=== PATIENT | female | born 1965 | race African-American/Black ===

== ENCOUNTER 2023-07-12 08:18 | Outpatient (AMB) | payer OTHER, SELFPAY ==
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
[2023-07-12 08:24] VITALS: BP 116/84; BMI 32.7
== END 2023-07-12 09:46 | disposition home or self-care (01) ==
PROVIDERS: PCP Internal Medicine; Visit Provider Nurse Practitioner Family
DX: R51.9 Headache, unspecified (principal); G50.0 Trigeminal neuralgia; M54.2 Cervicalgia; R20.2 Paresthesia of skin; G47.9 Sleep disorder, unspecified; S82.891A Other fracture of right lower leg, initial encounter for closed fracture
CPT/HCPCS: 99204

== ENCOUNTER → 2023-07-12 08:18 | Outpatient (BNVA) | payer OTHER, SELFPAY | PROVIDERS: PCP Internal Medicine; Visit Provider Nurse Practitioner Family | DX: R51.9 Headache, unspecified (principal); G50.0 Trigeminal neuralgia; M54.2 Cervicalgia; R20.2 Paresthesia of skin; G47.9 Sleep disorder, unspecified | CPT/HCPCS: 99202 ==

== ENCOUNTER 2023-10-01 09:50 | Outpatient (REF) | payer OTHER, SELFPAY ==
--- NOTE | ~2023-10-01 | MR_ITS ---
EXAMINATION: MR BRAIN WITH AND WITHOUT CONTRAST CLINICAL INFORMATION: Headaches COMPARISON: None available. TECHNIQUE: MRI of the brain was obtained using routine sequences with additional dedicated sequences of the mid face/neck before and following administration of intravenous contrast. A total of 7.5 mL of Gadavist was administered intravenously. FINDINGS: There is no reduced diffusion to suggest acute infarct. Susceptibility weighted sequence is within normal limits. No mass effect, extra-axial collection, midline shift, or other herniation. No abnormal intracranial enhancement. The cisternal segments of the trigeminal nerves are within normal limits. No evidence of root entry zone vascular compression. No abnormal enhancement along Meckel's caves and the visualized extracranial aspects. The ventricles and sulci are normal in size and configuration. Few punctate T2/FLAIR hyperintense foci are nonspecific but may represent early chronic microvascular ischemic change. The visualized proximal intracranial flow voids are preserved. The paranasal sinuses are well-aerated. Partial opacification the bilateral mastoid air cells. No focal expansile or destructive osseous lesion. Cystic change in the posterior nasopharynx. MR/MR head/brain wo/w con IMPRESSION: No abnormal intracranial enhancement. The visualized aspects of the trigeminal nerves are within normal limits.
[2023-10-01] MEDS: gadobutroL 7.5 ML VIAL IVPUSH (10:54)
== END 2023-10-01 09:51 | disposition home or self-care (01) ==
LOC: HO.MRI 09:50
PROVIDERS: PCP Internal Medicine; Visit Provider Nurse Practitioner Family
DX: R51.9 Headache, unspecified (principal); G50.0 Trigeminal neuralgia
CPT/HCPCS: 70553; A9585

== ENCOUNTER 2024-03-06 14:06 | Outpatient (AMB) | payer OTHER, SELFPAY ==
--- NOTE | 2024-03-06 14:28 | A.OFFVIS_ITS ---
Vital Signs 03/06/24 14:31 Height 5 ft 1 in Weight 161 lb BMI 30.4 BP 122/78 Blood Pressure Location Rt brachial Position Sitting Intake Visit Reasons: Follow up-CONF Intake Note: patient presents for follow up. Allergies No Known Allergies Allergy (Verified 03/06/24 14:32) Medication List - Last Reconciled 03/06/24 by GODWIN Cordero baclofen 10 mg PO BID diclofenac sodium 1% topical BID estradiol 0.01%(0.1mg/gram) vaginal fluticasone propionate 50 mcg/actuation sprays intranasal loratadine 10 mg PO DAILY magnesium oxide 400 mg PO BEDTIME 30 days meclizine 12.5 mg PO TID mirabegron ER (Myrbetriq) 50 mg PO DAILY nicotine transdermal DAILY omeprazole 40 mg PO BID ondansetron mg PO DAILY riboflavin (vitamin B2) 400 mg PO DAILY 30 days sumatriptan succinate 50 - 100 mg orally at onset of headache, may repeat in 2 hrs PRN; max 2 tabs per day or 4 tabs/week (may take with Tylenol) 30 days topiramate 1/2 tab in qam and 1 tab at bedtime x's 2 weeks, then 1 tab bid orally 2 times a day; 30 days valacyclovir 1,000 mg PO DAILY HPI Comments Details: 58-yr-old female presents for f/u visit. Pt denies any significant interval medical changes. Pt reports she continues to have a near daily migraine a/w photophobia and phonophobia. She states she may have 1 day a month w/o a headache/migraine. She started Riboflavin 400mg qam- needs a refill. Started Magnesium 400mg qhs- helps. Started Topiramate 50mg 1 tab bid. Has not noticed any s/e's. 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 Baseline headache characteristics: Aura: can see flashing lights during the headache. Severe hammering pain starts in the mid occipital region and moves into the neck- neck feels swollen, and then has a sensation that moves from the crown of the head into the frontal region causing her eye, ears, upper teeth (was initially more so right) toothache type of pain a/w photophobia, photophobia, allodynia, nausea, vomiting, external/internal room spinning spinning dizziness, depth perception, occasionally sinus congestion. [facility] Medical History (Updated 07/19/23 @ 16:58 by GODWIN Cordero) HSV (herpes simplex virus) anogenital infection Tobacco use Bipolar disorder Degenerative disc disease, lumbar Degenerative disc disease, cervical Surgical History H/O oral surgery H/O knee surgery H/O tubal ligation H/O: hysterectomy Family History Mother HTN (hypertension) Heart disease COPD (chronic obstructive pulmonary disease) Hyperlipidemia Vertigo Bipolar 1 disorder Father HTN (hypertension) Heart disease Cancer Diabetes Liver disease Hyperlipidemia Stroke Schizophrenia Brother HTN (hypertension) Hyperlipidemia Vertigo Son Sarcoma Liver disease Sister Cancer Heart disease Diabetes COPD (chronic obstructive pulmonary disease) Hyperlipidemia Stroke Vertigo Social History Alcohol intake: never Patient Tobacco Use Status: Current someday Tobacco user Substance Use Type: Marijuana Physical Exam Vital Signs: Last Vital Signs BP 122/78 03/06/24 14:31 BMI result Body Mass Index 30.4 Const General: cooperative and no acute distress Orientation/consciousness: patient oriented x3 Resp Effort & Inspection: normal respiratory effort and able to speak in complete sentences Neuro General: patient oriented x3 Cranial nerves: Yes CN's II-XII intact bilaterally Cognition (Neuro): normal cognition Psych Appearance: grossly normal Mental Status: mental status grossly normal Speech and movement: Normal speech and movement present Affect: normal affect Attitude: cooperative Assessment & Plan Assessment & Plan (1) Worsening headaches: Comment: ? migraine vs secondary headache, cervicogenic BURTON Code(s): R51.9 - Headache, unspecified Category: Medical (2) Trigeminal neuralgia: Code(s): G50.0 - Trigeminal neuralgia Category: Medical Plan Reviewed: Brain MRI w/wo- nonspecific Few punctate T2/FLAIR hyperintense foci c/w early chronic microvascular ischemic change. Labs- WNL C-spine XR w/ flex/ext- severe multilevel degenerative changes w/o instability. Pt advised to undergo: MR angio brain w/o to assess for secondary intracranial etiologies of stabbing headaches and trigeminal neuralgia s/s. PT eval & tx- for cervicalgia, order slip given to pt. Future considerations: c-spine MRI, RUE/BUE EMG/NCS.. ? For overall headache management: Discussed importance of good self-care, including but not limited to maintaining a healthy diet, adequate fluid intake, adequate sleep, and engaging in regular physical activity. For headache triggers: Track headaches. Light sensitivity tips: Patient may try blue light filtering glasses, green glasses, green light therapy.. ? For acute headache treatment: Discussed importance of taking acute medications at the first sign of headache, however stressed importance of avoiding acute medication overuse. Continue Sumatriptan 100mg tab. Advised she can try 1/4-1/2 tab during the day to better assess tolerance and effect. May repeat Sumatripatn in 2 hours. Max of 2 tabs (200mg) per 24 hours. May adjunct with OTC Tylenol 650mg q 4 hours, Ibuprofen 600mg q 6 hours, or Naproxen 440mg q 12 hrs prn. Previous acute migraine medication trials: None Acute migraine medication contraindications: None ? For headache prevention medication: Riboflavin 400mg qam Magnesium 400mg qhs Increase Topiramate from 50mg bid to 50mg qam and 100mg qhs x's 2 weeks, then 100mg bid. Previous migraine prevention medication trials: No other Migraine prevention medication contraindications: antidepressants d/t bipolar dx w/o a concomitant mood stabilizer. ? Pt advised to call us if no improvement in 1-2 months. Pt to follow-up in 4-6 months or sooner prn. Orders: Orders MR angio head wo con 03/06/24 G50.0 - Trigeminal neuralgia, R51.9 - Headache, unspecified Medications: New topiramate 1/2 tab in qam and 1 tab at bedtime x's 2 weeks, then 1 tab bid orally 2 times a day; 30 days 60 tabs 6RF Refilled riboflavin (vitamin B2) 400 mg PO DAILY 30 days 30 tabs 6RF sumatriptan succinate (0.5 - 1 x 100 mg) 50 - 100 mg orally at onset of headache, may repeat in 2 hrs PRN; max 2 tabs per day or 4 tabs/week (may take with Tylenol) 30 days 12 tabs 6RF migraine headache Discontinued topiramate 2 tabs bid orally 2 times a day; Discontinued Reason: Doctor's Order 100 mg (2 x 50 mg) PO BID 30 days 120 tabs 3RF Coding Level of Care Code Est Pt Level 4 (87364) Diagnoses Worsening headaches R51.9 Trigeminal neuralgia G50.0
[2024-03-06 14:31] VITALS: BP 122/78; BMI 30.4
== END 2024-03-06 15:06 | disposition home or self-care (01) ==
PROVIDERS: PCP Internal Medicine; Visit Provider Nurse Practitioner Family
DX: R51.9 Headache, unspecified (principal); G50.0 Trigeminal neuralgia
CPT/HCPCS: 99214

== ENCOUNTER → 2024-03-06 14:06 | Outpatient (BNVA) | payer OTHER, SELFPAY | PROVIDERS: PCP Internal Medicine; Visit Provider Nurse Practitioner Family | DX: R51.9 Headache, unspecified (principal); G50.0 Trigeminal neuralgia | CPT/HCPCS: 99212 ==

== ENCOUNTER 2024-04-25 10:59 | Outpatient (REF) | payer OTHER, SELFPAY ==
--- NOTE | ~2024-04-25 | MR_ITS ---
EXAMINATION: MR ANGIOGRAPHY BRAIN WITHOUT CONTRAST CLINICAL INFORMATION: Trigeminal neuralgia. COMPARISON: Brain MRI from 10/01/2023. TECHNIQUE: 3D [id number] MR angiography was performed through the brain without the use of intravenous gadolinium. 3D postprocessing including acquisition of multiplanar MIP reformats are obtained at the technologist workstation and utilized for image interpretation. Stenoses are assessed in accordance with NASCET criteria unless otherwise indicated. FINDINGS: Normal flow-related signal within the anterior circulation without evidence of focal stenosis or occlusion of the intradural internal carotid, middle cerebral, or anterior cerebral arteries. The A1 segment of the right anterior cerebral artery is atretic in nature (normal variant). Normal flow-related signal within the posterior circulation without evidence of focal stenosis or occlusion of the intradural vertebral, basilar, superior cerebellar, or posterior cerebral arteries. No demonstrated intradural aneurysms. No demonstrated abnormal arterial structures in the regions of the trigeminal nerves. No additional significant abnormalities on limited evaluation of the intracranial structures. MR/MR angio head wo con IMPRESSION: Normal MRA of the head. No demonstrated abnormalities to explain the patient's symptoms. Electronically signed by: Mina Oliver DO 06/24/2024 03:33 AM EST
== END 2024-04-25 11:00 | disposition home or self-care (01) ==
LOC: HO.MRI 10:59
PROVIDERS: PCP Internal Medicine; Visit Provider Nurse Practitioner Family
DX: G50.0 Trigeminal neuralgia (principal); R51.9 Headache, unspecified
CPT/HCPCS: 70544

== ENCOUNTER 2024-11-19 08:50 | Outpatient (REF) | payer OTHER, SELFPAY ==
--- NOTE | ~2024-11-19 | CT_ITS ---
CLINICAL HISTORY: TRIGEMINAL NEURALGIA,WORSENING,HEADACHES CT Head without contrast. CT angiography head and neck with contrast. 3D Postprocessing. Comparison: None Findings: HEAD CT: Scattered subcortical and periventricular hypoattenuation, likely in keeping with chronic small vessel ischemic disease. Parenchymal volume loss with compensatory prominence of the ventricles and CSF spaces. No acute territorial infarction, intracranial hemorrhage, midline shift or hydrocephalus. There is no sinus or mastoid fluid. The orbits are unremarkable. No skull fracture. Periapical lucencies, in keeping with periodontal disease. HEAD AND NECK CTA: Aortic arch and cervical great vessels are patent. Minimal focus of plaque along the left proximal cervical segment ICA. No significant stenoses cervical vasculature is patent. Infundibulum of the origin of the left superior cerebellar artery. Aplastic right A1 segment SARIAH. Intracranial arteries are patent. No aneurysm, dissection, or occlusion. No abnormal intracranial enhancement. The visualized thyroid gland is unremarkable. No cervical mass or fluid collection. Emphysema. Straightening of the cervical lordosis. Multilevel spondylosis with osteophytosis, uncovertebral hypertrophy, facet arthropathy and degenerative disc disease. Scattered prominent lymph nodes throughout the neck, may be reactive however are nonspecific. IMPRESSION: 1. No acute intracranial hemorrhage or territorial infarction. 2. Patent head and neck CTA. If clinical concern persists consider follow-up MRI. This document has been electronically signed by: Marek Alvarado MD on 11/20/2024 04:27:53
--- OUTSIDE RECORDS SUMMARY | 2024-11-19 09:10 | XMS_ITS | Clinical Summary ---
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 Active topiramate (TOPAMAX) 25 mg tablet Take 1 Capsule by mouth daily. Active meclizine (ANTIVERT) 12.5 mg tablet Take 1 Tablet by mouth 3 times daily as needed (dizziness). Active loratadine (CLARITIN) 10 mg tablet Take 1 tablet (10 mg total) by mouth 1 (one) time each day. Active fluticasone propionate (FLONASE) 50 mcg/actuation nasal spray 2 Sprays by Nasal route daily. Active nicotine (NICODERM CQ) 7 mg/[address] 1 PATCH ONTO THE SKIN EVERY 24 HOURS Active baclofen (LIORESAL) 10 mg tablet TAKE 1 TABLET BY MOUTH TWICE A DAY NEEDED FOR MUSCLE SPASM Active nicotine polacrilex (NICORETTE) 2 mg gum Take 1 Each by mouth every 3 hours as needed (smoking cessation). Active camphor-methyl salicyl-menthoL (Salonpas) 3.1-10-6 % adhesive patch,medicated Apply 1 Patch topically daily. 07/26/2 024 Active leg brace misc Elastic Bandages & Supports (MEE Ankle Brace Large) Misc 1 Each by Does not apply route daily 023 Active arm brace (WRIST BRACE LARGE MISC) Elastic Bandages & Supports (Wrist Brace/Right Large) Misc 1 Each by Does not apply route daily. 023 Active INCONTINENCE PAD, LINER, DISP MISC Incontinence Supply Disposable (RA Adult Wipes) Misc 2 Each by Does not apply route 5 times daily. 2 box Refill 11 Dx: Overactive bladder 023 Active omeprazole (PriLOSEC) [address] capsule TAKE 1 CAPSULE BY MOUTH EVERY DAY 90 capsule 1 025 Active traZODone (DESYREL) 150 mg tablet TAKE 1 TABLET BY MOUTH EVERYDAY AT BEDTIME 90 tablet 1 025 Active SUMAtriptan (IMITREX) 100 mg tablet PLEASE SEE ATTACHED FOR DETAILED DIRECTIONS Active magnesium oxide (MAG-OX) 400 mg (241.3 elemental magnesium) tablet TAKE 1 TABLET BY MOUTH AT BEDTIME FOR 30 DAYS MAY HOLD FOR LOOSE STOOLS 024 Active ondansetron ODT (ZOFRAN-ODT) 4 mg disintegrating tablet Dissolve 1 tablet (4 mg total) on top of the tongue every 12 (twelve) hours if needed for nausea or vomiting. 30 tablet 2 025 Active diclofenac (VOLTAREN) 1 % topical gel APPLY 2 G TOPICALLY TWICE A DAY 100 g 1 025 Active estradioL (ESTRACE) 0.01 % (0.1 mg/gram) vaginal cream INSERT 2 GRAMS INTO THE VAGINA ONCE DAILY. 42.5 g 2 025 Active estradioL (ESTRACE) 0.01 % (0.1 mg/gram) vaginal cream Insert 2 g into the vagina 1 (one) time each day. 42.5 g 1 025 2024 Discontinued Active Problems Problem Noted Date Diagnosed Date GERD (gastroesophageal reflux disease) OAB (overactive bladder) 04/11/2023 Tobacco use disorder 04/11/2023 Vertigo 04/11/2023 Degenerative disc disease, cervical 10/03/2022 Degenerative disc disease, lumbar 10/03/2022 Migraine 10/03/2022 Other insomnia 10/03/2022 Bipolar disorder ([facility] V24, [facility] V28) 07/15 Overview (04/08/2024): Dr Rodriguez-[facility] psych on [facility].has councellor too Morbid obesity ([facility] V24, [facility] V28) 2006 Immunizations Name Administration Dates Next Due Td Tetanus diptheria (Tdvax) 7yo and older 10/22 Tdap Tetanus diptheria acell ular pertussis (Boostrix; Adacel) 7yo and older 04/11/2023 Surgical History Surgery Date Site/Laterality Comments OTHER SURGICAL HISTORY PROCEDURE: UT TOTAL ABDOMINAL HYSTERECT W/WO RMVL TUBE OVARY Medical History Medical History Date Comments Bipolar disorder ([facility] V2 4, [facility] V28) 07/25/2006 DX:Bipolar disorder ([facility]); C OMMENT: Dr Rodriguez-[facility] psych on [facility].has councellor too Family History Medical History Relation Name Comments Colon cancer Father 50 Diabetes Father Hypertension Father COPD Mother Coronary artery disease Mother Dementia Mother Hypertension Mother Diabetes Sister Hypertension Sister Relation Name Status Comments Brother Alive 1,helathy Father Mother Alive Sister Alive 3, Social History Tobacco Use Types Packs/Day Years Used Date Smoking Tobacco: Former Cigarettes Smokeless Tobacco: Never Tobacco Cessation:Counseling Given: Not Answered Alcohol Use Standard Drinks/Week Comments Yes 0 (1 standard drink = 0.6 oz pur e alcohol) Comments No Sex and Gender Information Value Date Recorded Sex Assigned at Not on file Legal Sex Female 5:29 AM EST Gender Identity Not on file Sexual Orientation Not on file Obstetrics History Last Filed Vital Signs Vital Sign Reading Time Taken Comments Blood Pressure 135/91 08/12/2024 8:34 AM EST Pulse 79 08/12/2024 8:34 AM EST Temperature - - Respiratory Rate - - Oxygen Saturation - - Inhaled Oxygen Concentration - - Weight 75.4 kg (166 lb 3.2 oz) 08/12/2024 8:34 A M EST Height 152.4 cm (5') 08/12/2024 8:34 AM EST Body Mass Index 32.46 08/12/2024 8:34 AM EST Plan of Treatment Health Maintenance Due Date Last Done Comments Pneumococcal Vaccine: 50+ Years (1 of 1 - PCV) 2014 HIV Screening 06/24/2022 Medicare Annual Wellness Visit 06/24/2022 Depression Screening 08/12/2025 08/12/2024 Social Influencers of Health Screening 08/12/2025 08/12/2024 Cholesterol Screening (Lipid Panel) 08/12/2029 08/12/2024, 02/07/2024, 02/07/2024 DTaP,Tdap,and Td Vaccines (3 - Td or Tdap) 04/11/2033 04/11/2023, 10/22/2002 Colorectal Cancer Screening: Colonoscopy 08/20/2033 08/20/2023 RSV Immunization Adult Patients (1 - 1-dose 75+ series) 2039 COVID-19 Vaccine Discontinued 11/06/2021 Hepatitis C Screening Completed 09/14/2022 Breast Cancer Screening Discontinued Cervical Cancer Screening: Pap Smear Discontinued HIB Vaccines Aged Out No longer eligi ble based on patient's age to complete this topic HPV Vaccines Aged Out No longer eligi ble based on patient's age to complete this topic Hepatitis A Vaccines Aged Out No long er eligible based on patient's age to complete this topic Hepatitis B Vaccines Aged Out No long er eligible based on patient's age to complete this topic IPV Vaccines Aged Out No longer eligi ble based on patient's age to complete this topic Influenza Vaccine Discontinued MMR Vaccines Aged Out No longer eligi ble based on patient's age to complete this topic Meningococcal ACWY Vaccine Aged Out N o longer eligible based on patient's age to complete this topic Meningococcal B Vaccine Aged Out No l onger eligible based on patient's age to complete this topic Pneumococcal Vaccine: Pediatrics (0 to 5 Years) and At-Risk Patients (6 to 64 Years) Aged Out No longer eligible based on patient's age to complete this topic RSV Immunization Patients Under 20 months Aged Out No longer eligible based on patient's age to complete this topic Varicella Vaccines Aged Out No longer eligible based on patient's age to complete this topic Zoster Vaccines Discontinued Procedures Procedure Name Priority Date/Time Associated Diagnosis Comments LIPID PANEL WITH REFLEX TO DIRECT LDL Routine 08/12/2024 9:44 AM EST Hypercholesterolemi a COLONOSCOPY Routine 08/20/2023 HEPATITIS C SCREENING Routine 09/14/2022 from Last 3 Months or Most Recently Relevant to Health Maintenance Results * (ABNORMAL) Lipid panel with reflex to direct LDL (08/12/2024 9:44 AM EST) Cholesterol 207(H) 0 - 200 mg/dL LAB CHEMISTRY METHOD 08/12/2024 12:[address] [facility] Triglycerides 56 0 - 150 mg/dL LAB CHEMISTRY METHOD 08/12/2024 12:[address] [facility] HDL 90 >=40 mg/dL LAB CHEMISTRY METHOD 08/12/2024 12:[address] [facility] LDL Calculated 106(H) 0 - 100 mg/dL LAB CHEMISTRY METHOD 08/12/2024 12:[address] [facility] VLDL Cholesterol Kel 11.2 mg/dL LAB CHEMISTRY METHOD 08/12/2024 12:[address] [facility] Non HDL Chol. (LDL+VLDL) 117 <145 mg/dL LAB CHEMISTRY METHOD 08/12/2024 12:[address] [facility] Chol/HDL Ratio 2.3 0.0 - 4.4 LAB CHEMISTRY METHOD 08/12/2024 12:[address] [facility] Blood Venous blood specimen / Unknown Venipuncture / Unknown 08/12/2024 9:44 AM EST 08/12/2024 9:44 AM EST Gumaro Cheng MD LAB BLOOD ORDERABLES Final Resu lt [facility] [address] [place] [address], [place] [phone] * Colonoscopy (08/20/2023) Pathologist [facility] Colonoscopy completed Anatomical Region Laterality Modality Other Historical Provider HEALTH MAINTENANCE Final Result * Hepatitis C Screening (09/14/2022) Hepatitis C Screening negative us Historical Provider HEALTH MAINTENANCE Final Result from Last 3 Months or Most Recently Relevant to Health Maintenance Insurance [employer] Member Subscriber Plan / Payer (Ef fective 2024-Present) Name:João Gutierrez Relation to Subscriber:Self Name:João Gutierrez Payer ID:[id number] Group ID:[id number] Type:Not on file Address: [place] [address] [address] [place] [id number] 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
[2024-11-19] MEDS: iohexoL 350 MG/ML 100 ML INFUS..BTL IV (09:56)
[2024-11-20 08:21] LABS: Creatinine POC 0.8 mg/dL (0.5-1.4); GFR POC > 60
== END 2024-11-19 08:51 | disposition home or self-care (01) ==
LOC: HO.CT 08:50
PROVIDERS: PCP Internal Medicine; Visit Provider Nurse Practitioner Family
DX: G50.0 Trigeminal neuralgia (principal); R51.9 Headache, unspecified
CPT/HCPCS: 70496; 70498; 82565; Q9967

== ENCOUNTER → 2024-11-19 08:53 | Outpatient (BNV) | payer OTHER, SELFPAY | PROVIDERS: PCP Internal Medicine; Visit Provider Radiology Diagnostic Radiology | DX: R51.9 Headache, unspecified (principal) | CPT/HCPCS: 70496; 70498 ==

== ENCOUNTER 2025-02-25 11:31 | Outpatient (AMB) | payer OTHER, SELFPAY ==
[2025-02-25 11:21] VITALS: BP 120/80; BMI 27.0
--- NOTE | 2025-02-25 11:21 | A.OFFVIS_ITS ---
Vital Signs 02/25/25 11:21 Height 5 ft 1 in Weight 143 lb BMI 27.0 BP 120/80 Blood Pressure Location Rt brachial Position Sitting Comment Unable to obtain O2 and pulse due to nails Intake Visit Reasons: follow up Intake Note: patient presents for follow up. 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 by: Self / Same As Patient Allergies No Known Allergies Allergy (Verified 02/25/25 11:40) Medication List - Last Reconciled 02/25/25 by GODWIN Cordero amoxicillin 875 mg PO BID baclofen 10 mg PO BID fluticasone propionate 50 mcg/actuation sprays intranasal loratadine 10 mg PO DAILY magnesium oxide 400 mg PO BEDTIME 30 days meclizine 12.5 mg PO TID mirabegron ER (Myrbetriq) 50 mg PO DAILY nicotine transdermal DAILY omeprazole 40 mg PO BID ondansetron mg PO DAILY riboflavin (vitamin B2) 400 mg PO DAILY 30 days sumatriptan succinate 50 - 100 mg orally at onset of headache, may repeat in 2 hrs PRN; max 2 tabs per day or 4 tabs/week (may take with Tylenol) 30 days topiramate 1/2 tab in qam and 1 tab at bedtime x's 2 weeks, then 1 tab bid orally 2 times a day; 30 days valacyclovir 1,000 mg PO DAILY HPI Comments Details: 59-yr-old female presents for f/u visit, for migraine, but also would like to discuss a new dizziness. Pt reports a chronic history of room spinning vertigo. However, she has a new vertigo sensation, which started 2 months ago, where she feels like her brain is moving, even when she is not moving- like a not right in space sensation. This is causing her to bump into things. Prior to the onset of this, she denies any infection, cold s/s. However, 2 weeks ago, she had URI s/s- nasal congestion- which she tried to self manage w/ supplements, but then moved into her chest, and then saw her PCP who dx'd her w/ PNA and started her on Amoxicillin-Clauv. Today, she notes that this dizziness has improved since starting the ABT 5 days ago. Does use a loratadine daily- for seasonal allergies- as [place] Pt reports she continues to have a near daily less severe migraine a/w photophobia and phonophobia. Now not having 4 attacks in a day, may only have 1 attack per day. She uses Riboflavin 400mg qam- needs a refill. She uses Mag bid, and uses a small marijuana edible at night- which helps. Uses Topiramate 50mg 1 tab bid- but not every day. 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 She is using alternate interventions- using shades, black out curtains. Has a yellow, but never tried using green light tx. Baseline headache characteristics: Aura: can see flashing lights during the headache. Severe hammering pain starts in the mid occipital region and moves into the neck- neck feels swollen, and then has a sensation that moves from the crown of the head into the frontal region causing her eye, ears, upper teeth (was initially more so right) toothache type of pain a/w photophobia, photophobia, allodynia, nausea, vomiting, external/internal room spinning spinning dizziness, depth perception, occasionally sinus congestion. [facility] Medical History (Updated 02/25/25 @ 12:31 by GODWIN Cordero) HSV (herpes simplex virus) anogenital infection Tobacco use Bipolar disorder Degenerative disc disease, lumbar Degenerative disc disease, cervical Surgical History (Updated 02/25/25 @ 11:41 by Leah Milton CMA) History of recent maxillofacial surgery H/O oral surgery H/O knee surgery H/O tubal ligation H/O: hysterectomy Family History Mother HTN (hypertension) Heart disease COPD (chronic obstructive pulmonary disease) Hyperlipidemia Vertigo Bipolar 1 disorder Father HTN (hypertension) Heart disease Cancer Diabetes Liver disease Hyperlipidemia Stroke Schizophrenia Brother HTN (hypertension) Hyperlipidemia Vertigo Son Sarcoma Liver disease Sister Cancer Heart disease Diabetes COPD (chronic obstructive pulmonary disease) Hyperlipidemia Stroke Vertigo Social History Alcohol intake: never Patient Tobacco Use Status: Current someday Tobacco user Substance Use Type: Marijuana Physical Exam Vital Signs: Last Vital Signs BP 120/80 02/25/25 11:21 BMI result Body Mass Index 27.0 Const General: cooperative and no acute distress Orientation/consciousness: patient oriented x3 Resp Effort & Inspection: normal respiratory effort and able to speak in complete sentences Neuro General: patient oriented x3 Cranial nerves: Yes CN's II-XII intact bilaterally Cognition (Neuro): normal cognition Psych Appearance: grossly normal Mental Status: mental status grossly normal Speech and movement: Normal speech and movement present Affect: normal affect Attitude: cooperative Assessment & Plan Assessment & Plan (1) Trigeminal neuralgia: Code(s): G50.0 - Trigeminal neuralgia Category: Medical (2) Migraine without aura and without status migrainosus, not intractable: Code(s): G43.009 - Migraine without aura, not intractable, without status migrainosus Category: Medical Plan Previous workup: Brain MRI w/wo- nonspecific Few punctate T2/FLAIR hyperintense foci c/w early chronic microvascular ischemic change. C-spine XR w/ flex/ext- severe multilevel degenerative changes w/o instability. Interval workup: 11/21/2023, head neck CTA: Scattered subcortical and periventricular hypoattenuation, likely in keeping with chronic small vessel ischemic disease. Parenchymal volume loss with compensatory prominence of the ventricles and CSF spaces. No acute intracranial hemorrhage or territorial infarction. Patent head and neck CTA. 04/24/2024, MR angio brain w/o: Normal MRA of the head. For new onset not right in space dizziness: Improved since starting Augmentin for pneumonia treatment Hold loratadine Trial Zyrtec 10 mg q.h.s. Advised to try OTC pressurized saline spray, saline rinse into both nostrils daily before bedtime If ineffective, consider trial of Xyzal or cyproheptadine.? Future considerations: Vestibular eval and treat For overall headache management: Discussed importance of good self-care, including but not limited to maintaining a healthy diet, adequate fluid intake, adequate sleep, and engaging in regular physical activity. For headache triggers: Track headaches. Light sensitivity tips: Patient patient advised to try a green light bulb, such as can be bought at the local [employer] store, to minimize photophobia ? For acute headache treatment: It is important to take acute medications at the first sign of headache, however stressed importance of avoiding acute medication overuse. Continue Sumatriptan 100mg tab. Advised she can try 1/4-1/2 tab during the day to better assess tolerance and effect. May repeat Sumatripatn in 2 hours. Max of 2 tabs (200mg) per 24 hours. May adjunct with OTC Tylenol 650mg q 4 hours, Ibuprofen 600mg q 6 hours, or Naproxen 440mg q 12 hrs prn. Previous acute migraine medication trials: None Acute migraine medication contraindications: None ? For headache prevention medication: Continue Riboflavin 400mg qam We will adjust Magnesium dose from 400mg qhs to patient's current dose * Continue magnesium 400 mg twice a day Continue Topiramate 100 mg daily at bedtime Previous migraine prevention medication trials: No other Migraine prevention medication contraindications: antidepressants d/t bipolar dx w/o a concomitant mood stabilizer. ? Pt advised to call us if no improvement in 1-2 months. Pt to follow-up in 4-6 months or sooner prn. Medications: New cetirizine (Zyrtec) 10 mg PO BEDTIME 30 tabs 6RF 30 days Changed From topiramate 1/2 tab in qam and 1 tab at bedtime x's 2 weeks, then 1 tab bid orally 2 times a day; 30 days 60 tabs 6RF To topiramate 100 mg PO BEDTIME 30 tabs 6RF 30 days From magnesium oxide may hold for loose stools 400 mg PO BEDTIME 30 days 30 tabs 6RF To magnesium oxide may hold for loose stools 400 mg PO BID 180 tabs 3RF 90 days From riboflavin (vitamin B2) 400 mg PO DAILY 30 days 30 tabs 6RF To riboflavin (vitamin B2) 400 mg PO DAILY 90 tabs 3RF 90 days Refilled sumatriptan succinate 50 - 100 mg orally at onset of headache, may repeat in 2 hrs PRN; max 2 tabs per day or 4 tabs/week (may take with Tylenol) 12 tabs 6RF migraine headache 30 days Coding Level of Care Code Est Pt Level 4 (69567) Diagnoses Trigeminal neuralgia G50.0 Migraine without aura and without status migrainosus, not intractable G43.009
--- OUTSIDE RECORDS SUMMARY | 2025-02-25 12:36 | XMS_ITS | Clinical Summary ---
Author Organization [place] [address] [facility] Address [address] [place] [phone] Phone Care Team Providers [employer] Foreperson Name Role Phone Gumaro Cheng MD Primary Care Provider [phone] Allergies Active Allergy Reactions Criticality Noted Date Comments Pollen Extracts 04/11/2023 SEASONAL ALLERGIES Medications valACYclovir (VALTREX) 1 gram tablet Take 1 Tablet by mouth daily as needed (herpes). 024 Active topiramate (TOPAMAX) 25 mg tablet Take 1 Capsule by mouth daily. Active loratadine (CLARITIN) 10 mg tablet Take 1 tablet (10 mg total) by mouth 1 (one) time each day. 024 Active baclofen (LIORESAL) 10 mg tablet TAKE 1 TABLET BY MOUTH TWICE A DAY NEEDED FOR MUSCLE SPASM 024 Active camphor-methyl salicyl-menthoL (Salonpas) 3.1-10-6 % adhesive patch,medicated Apply 1 Patch topically daily. 024 Active leg brace misc Elastic Bandages [...] Refill 11 Dx: Overactive bladder 023 Active SUMAtriptan (IMITREX) 100 mg tablet PLEASE SEE ATTACHED FOR DETAILED DIRECTIONS Active magnesium oxide (MAG-OX) 400 mg (241.3 elemental magnesium) tablet TAKE 1 TABLET BY MOUTH AT BEDTIME FOR 30 DAYS MAY HOLD FOR LOOSE STOOLS 024 Active diclofenac (VOLTAREN) 1 % topical gel APPLY 2 G TOPICALLY TWICE A DAY 100 g 1 025 Active ondansetron ODT (ZOFRAN-ODT) 4 mg disintegrating tablet DISSOLVE 1 TABLET ON TONGUE EVERY 12 HOURS NEEDED FOR NAUSEA OR VOMITING. 30 tablet 3 025 Active estradioL (ESTRACE) 0.01 % (0.1 mg/gram) vaginal cream INSERT 2 GRAMS INTO THE VAGINA ONCE DAILY. 42.5 g 2 025 Active omeprazole (PriLOSEC) [address] capsule TAKE 1 CAPSULE BY MOUTH EVERY DAY 90 capsule 1 025 Active traZODone (DESYREL) 150 mg tablet TAKE 1 TABLET BY MOUTH EVERYDAY AT BEDTIME 90 tablet 1 025 Active nicotine (NICODERM CQ) 7 mg/[address] 1 patch on the skin 1 (one) time each day at the same time. 30 each 025 2024 Active meclizine (ANTIVERT) 12.5 mg tablet TAKE 1 TABLET BY MOUTH THREE TIMES A DAY NEEDED FOR DIZZINESS 90 tablet 1 025 Active fluticasone propionate (FLONASE) 50 mcg/actuation nasal spray SPRAY 2 SPRAYS INTO EACH NOSTRIL EVERY DAY 48 mL 1 025 Active meclizine (ANTIVERT) 12.5 mg tablet Take 1 Tablet by mouth 3 times daily as needed (dizziness). 024 2024 Discontinued fluticasone propionate (FLONASE) 50 mcg/actuation nasal spray 2 Sprays by Nasal route daily. 024 2024 Discontinued nicotine (NICODERM CQ) 7 mg/[address] 1 PATCH ONTO THE SKIN EVERY 24 HOURS 2024 Discontinued nicotine polacrilex (NICORETTE) 2 mg gum Take 1 Each by mouth every 3 hours as needed (smoking cessation). 024 2024 Discontinued amoxicillin-clavu lanate (AUGMENTIN) 875-125 mg per tablet Take 1 tablet by mouth 2 (two) times a day for 7 days. 14 each 025 2024 Active Problems Problem Noted Date Diagnosed Date GERD (gastroesophageal reflux disease) OAB (overactive bladder) 04/11/2023 Tobacco use disorder 04/11/2023 Vertigo 04/11/2023 Degenerative disc disease, cervical 10/03/2022 Degenerative disc disease, lumbar 10/03/2022 Migraine 10/03/2022 Other insomnia 10/03/2022 Bipolar disorder [place] [place], [facility] [place]28) 07/15 Overview (04/08/2024): [facility] on [facility].has councellor too Morbid obesity ([facility] [place], [facility] V28) 2006 Encounters Date Type Department Care Team Description 02/15/2025 3:08 PM EDT - 02/15/2025 11:59 PM EDT Hospital Encounter Xray - [facility] [address] [place] [address] Acute cough Discharge Disposition: Home or Self Care 02/15/2025 3:00 PM EDT [facility] [phone] Mateusz Peguero PA Acute cough (Primary Dx); Chronic obstructive pulmonary disease, unspecified COPD type ([facility] [place]24, [facility] V28) 02/15/2025 [facility] [phone] Gumaro Cheng MD Sinusitis; Chest Pain; Nasal Congestion; Cough from Last 3 Months Immunizations Name Administration Dates Next Due Td Tetanus diptheria (Tdvax) 7yo and older 10/22 Tdap Tetanus diptheria acell ular pertussis (Boostrix; Adacel) 7yo and older 04/11/2023 Surgical History Surgery Date Site/Laterality Comments OTHER SURGICAL HISTORY PROCEDURE: [facility] TOTAL ABDOMINAL HYSTERECT W/WO RMVL TUBE OVARY Medical History Medical History Date Comments Bipolar disorder (CMS/HCC V2 4, CMS/HCC V28) 07/25/2006 DX:Bipolar disorder ([facility]); C OMMENT: Dr [facility] psych on [facility].has councellor too Family History Medical History Relation [...] Sign Reading Time Taken Comments Blood Pressure 108/80 02/15/2025 2:54 PM EDT Pulse 97 02/15/2025 2:54 PM EDT Temperature 36.2 C (97.2 F) 02/15/2025 2:54 PM EDT Respiratory Rate 16 02/15/2025 2:54 PM EDT Oxygen Saturation 94% 02/15/2025 2:54 PM EDT Inhaled Oxygen Concentration - - Weight 68.8 kg (151 lb 9.6 oz) 02/15/2025 2:54 P M EDT Height 152.4 cm (5') 08/12/2024 8:34 AM EST Body Mass Index 29.61 08/12/2024 8:34 AM EST Plan of Treatment Health Maintenance Due Date Last Done Comments Pneumococcal Vaccine: 50+ Years (1 of 2 - PCV) 1983 HIV Screening 06/24/2022 Medicare Annual Wellness Visit 06/24/2022 RSV Immunization Adult Patients (1 - Risk 60-74 years 1-dose series) 2024 Depression Screening 07/15/2024 Social Influencers of Health Screening 08/12/2025 08/12/2024 Cholesterol Screening (Lipid Panel) 08/12/2029 08/12/2024, 02/07/2024, 02/07/2024 DTaP,Tdap,and Td Vaccines (3 - Td or Tdap) 04/11/2033 04/11/2023, 10/22/2002 Colorectal Cancer Screening: Colonoscopy 08/20/2033 08/20/2023 COVID-19 Vaccine Discontinued 11/06/2021 Hepatitis C Screening [...] Procedure Name Priority Date/Time Associated Diagnosis Comments XR CHEST 2 VIEWS Routine 02/15/2025 3:15 PM EDT Acute cough LIPID PANEL WITH REFLEX TO DIRECT LDL Routine 08/12/2024 9:44 AM EST Hypercholesterolemi a COLONOSCOPY Routine 08/20/2023 HEPATITIS C SCREENING Routine 09/14/2022 from Last 3 Months or Most Recently Relevant to Health Maintenance Results * XR Chest 2 Views (02/15/2025 3:15 PM EDT) Anatomical Region Laterality Modality Body Radiographic [place] ging 02/15/2025 3:17 PM EDT Impressions 02/15/2025 3:19 PM EDT Hyperinflated lungs, suggestive of COPD. Minimal linear subsegmental atelectasis/scarring in both lungs as described. -------- FINAL REPORT -------- Dictated By: Maricruz Garcia Dictated Date: 02/15/2025 15:17 ET Assigned Physician: Maricruz Garcia Reviewed and Electronically Signed By: Maricruz Garcia Signed Date: 02/15/2025 15:19 ET Workstation ID: [id number] Transcribed By: Self Edit Transcribed Date: 02/15/2025 15:17 ET Narrative 02/15/2025 3:19 PM EDT CHEST, TWO VIEWS HISTORY: Cough . TECHNIQUE: Frontal and lateral views of the chest. PRIOR: None. FINDINGS: The lungs are hyperinflated. There are minimal linear densities at the right lung base and also in the mid and lower left lung. No pleural effusion is seen. No pneumothorax is seen. The cardiac diameter is within normal limits. No acute or aggressive appearing bony abnormalities are seen. There is degenerative change of the spine. Procedure Note Maricruz Garcia MD - 02/15/2025 CHEST, TWO VIEWS HISTORY: Cough . TECHNIQUE: Frontal and lateral views of the chest. PRIOR: None. FINDINGS: The lungs are hyperinflated. There are minimal linear densities at the right lung base and also in themid and lower left lung. No pleural effusion is seen. No pneumothorax is seen. The cardiac diameter is within normal limits. No acute or aggressive appearing bony abnormalities are seen. There isdegenerative change of the spine. IMPRESSION: Hyperinflated lungs, suggestive of COPD. Minimal linear subsegmental atelectasis/scarring in both lungs asdescribed. -------- FINAL REPORT -------- Dictated By: Maricruz Garcia Dictated Date: 02/15/2025 15:17 ET Assigned Physician: Maricruz Garcia Reviewed and Electronically Signed By: Maricruz Garcia Signed Date: 02/15/2025 15:19 ET Workstation ID: [id number] Transcribed By: Self Edit Transcribed Date: 02/15/2025 15:17 ET us Mateusz MARIANO IMG XR PROCEDURES Final Result * (ABNORMAL) Lipid panel with reflex to direct LDL (08/12/2024 9:44 AM EST) Cholesterol 207(H) 0 - 200 mg/dL LAB CHEMISTRY METHOD 08/12/2024 12:59 PM EST [facility] Triglycerides 56 0 - 150 mg/dL LAB CHEMISTRY METHOD 08/12/2024 12:59 PM EST [facility] HDL 90 >=40 mg/dL LAB CHEMISTRY METHOD 08/12/2024 12:59 PM EST [facility] LDL Calculated 106(H) 0 - 100 mg/dL LAB CHEMISTRY METHOD 08/12/2024 12:59 PM EST [facility] VLDL Cholesterol Kel 11.2 mg/dL LAB CHEMISTRY METHOD 08/12/2024 12:59 PM EST [facility] Non HDL Chol. (LDL+VLDL) 117 <145 mg/dL LAB CHEMISTRY METHOD 08/12/2024 12:59 PM [facility] Chol/HDL Ratio 2.3 0.0 - 4.4 LAB CHEMISTRY METHOD 08/12/2024 12:59 PM EST [facility] Blood Venous blood specimen / Unknown Venipuncture / Unknown 08/12/2024 9:44 AM EST 08/12/2024 9:44 AM EST Gumaro Cheng MD LAB BLOOD ORDERABLES Final Resu lt [facility] [address] [place] [address], * Colonoscopy (08/20/2023) Pathologist [facility] Colonoscopy completed Anatomical Region Laterality Modality Other Historical Provider HEALTH MAINTENANCE Final Result * Hepatitis C Screening (09/14/2022) Pathologist [facility] Hepatitis C Screening negative Historical Provider HEALTH MAINTENANCE Final Result from Last 3 Months or Most Recently Relevant to Health Maintenance Insurance , [address] [place] [address] [id number] [employer] MEDICARE Member Subscriber Plan / Payer (Ef fective 2024-Present) Name:[id number] Relation to Subscriber:Self Name:Gene João Payer ID:[id number] Group ID:[id number] Type:Not on file Address: [place] [address] [address] [place] [phone] Care Teams [employer] Foreperson Relationship Specialty Start Date End Date Gumaro Cheng MD [address] [place] [address] PCP - General Internal Medicine 07/02/24
== END 2025-02-25 12:15 | disposition home or self-care (01) ==
LOC: HO.HSMS 11:32
PROVIDERS: PCP Internal Medicine; Visit Provider Nurse Practitioner Family
DX: G50.0 Trigeminal neuralgia (principal); G43.009 Migraine without aura, not intractable, without status migrainosus
CPT/HCPCS: 99214

== ENCOUNTER → 2025-02-25 11:31 | Outpatient (BNVA) | payer OTHER, SELFPAY | PROVIDERS: PCP Internal Medicine; Visit Provider Nurse Practitioner Family | DX: G50.0 Trigeminal neuralgia (principal); G43.009 Migraine without aura, not intractable, without status migrainosus | CPT/HCPCS: 99212 ==